=== PATIENT | male | born 1965 | race Caucasian/White ===

== ENCOUNTER 2019-12-07 01:38 | Inpatient (IN) | payer MEDICAID ==
[~2019-12-07] VITALS: Ht 170.2 cm; Wt 90.7 kg
[2019-12-07] MEDS ORDERED: ONDANSETRON HCL 4MG/2ML INJ IV STA (02:36)
[2019-12-07] MEDS ORDERED: SODIUM CHLORIDE 0.9% 1,000 ML IV ONE (02:36)
[2019-12-07] MEDS ORDERED: MORPHINE SULFATE 4 MG/ML CPJ (NOT FOR IM USE) IV STA (02:36)
[2019-12-07 02:47] LABS: BASOPHILS % 0.4 % (0.0-2.0); EOSINOPHILS % 2.2 % (0.0-5.0); HEMATOCRIT. 42.9 % (42.0-52.0); HEMOGLOBIN. 14.2 g/dL (14.0-18.0); LYMPHOCYTES % 9.8 % (20.0-50.0); MEAN CORPUSCULAR HEMOGLOBIN 26.2 pg (28.0-32.0); MEAN CORPUSCULAR VOLUME 78.9 fL (80.0-94.0); MEAN PLATELET VOLUME 9.6 fl (7.4-10.4); MONOCYTES % 6.1 % (2.0-8.0); NEUTROPHILS % 81.5 % (40.0-76.0); PLATELET 158 x1000/uL (130-400); RED BLOOD CELL COUNT 5.44 mill/uL (4.7-6.1); RED CELL DISTRIBUTION WIDTH 15.4 % (11.6-14.6)
[2019-12-07 02:48] LABS: CLARITY URINE CLEAR (CLEAR); COLOR URINE DARK YELLOW (YELLOW); KETONES URINE 1+ (NEGATIVE); LEUKOCYTE ESTERASE URINE NEGATIVE (NEGATIVE); NITRITE URINE NEGATIVE (NEGATIVE); OCCULT BLOOD URINE NEGATIVE (NEGATIVE); PH URINE 5.5 (4.5-8.0); PROTEIN URINE TRACE (NEGATIVE)
[2019-12-07 02:49] LABS: CHLORIDE 107 mEq/L (98-107)
[2019-12-07 02:53] LABS: ETHANOL BLOOD < 10 mg/dL
[2019-12-07 03:09] LABS: *BARBITURATES SCREEN URINE NEGATIVE (NEGATIVE); *BENZODIAZEPINES SCREEN URINE NEGATIVE (NEGATIVE); *COCAINE SCREEN URINE NEGATIVE (NEGATIVE); METHADONE URINE SCREEN NEGATIVE (NEGATIVE)
[2019-12-07 03:10] LABS: *AMPHETAMINES SCREEN URINE NEGATIVE (NEGATIVE); CANNABINOID URINE SCREEN NEGATIVE (NEGATIVE); OPIATES URINE SCREEN NEGATIVE (NEGATIVE); PHENCYCLIDINE URINE SCREEN NEGATIVE (NEGATIVE)
[2019-12-07] MEDS ORDERED: SODIUM CHLORIDE 0.9% 1,000 ML IV SCH (09:23)
[2019-12-07] MEDS ORDERED: MAGNESIUM/ALUMINUM HYDROXIDE/SIMETHICONE 30ML UDC PO PRN (09:30)
[2019-12-07] MEDS ORDERED: NA PHOS,M-B/NA PHOS,DI-BA ENEMA 118ML PR PRN (09:30)
[2019-12-07] MEDS ORDERED: CLONIDINE 0.1MG TABLET PO PRN (09:30)
[2019-12-07] MEDS ORDERED: DOCUSATE SODIUM 100MG CAPSULE PO PRN (09:30)
[2019-12-07] MEDS ORDERED: GUAIFENESIN 200MG/10ML SUGAR FREE UDC PO PRN (09:30)
[2019-12-07] MEDS ORDERED: ONDANSETRON HCL 4MG/2ML INJ IV PRN (09:30)
[2019-12-07] MEDS ORDERED: NITROGLYCERIN 0.4MG TABLET SL SL PRN (09:30)
[2019-12-07] MEDS ORDERED: LORAZEPAM 0.5MG TABLET PO PRN (09:30)
[2019-12-07] MEDS ORDERED: IPRATROPIUM/ALBUTEROL 0.5-3(2.5)MG/3ML NEB NEB PRN (09:30)
[2019-12-07] MEDS: KETOROLAC 15MG/ML VIAL IV PRN ×2 (10:26→17:35)
[2019-12-07] MEDS: ENOXAPARIN 40MG/0.4ML SYR SUBCUT SCH (10:27)
[2019-12-07] MEDS: ACETAMINOPHEN 325MG TABLET PO PRN ×2 (10:28→21:46)
[2019-12-07] MEDS: METOCLOPRAMIDE 10MG/10 ML UDC PO SCH ×2 (12:50→17:34)
[2019-12-07] MEDS ORDERED: DEXTROSE 50% WATER 50ML SYRINGE IV PRN (15:00)
[2019-12-07 15:25] VITALS: BP 106/73
[2019-12-07 16:00] VITALS: BP 110/73
[2019-12-07] MEDS ORDERED: INSU100V3 SUBCUT ×2 (16:18)
[2019-12-07] MEDS ORDERED: NPH,100V SQ (16:18)
[2019-12-07] MEDS ORDERED: METF-416 PO (16:18)
[2019-12-07] MEDS ORDERED: BENA5TAB6 PO (16:18)
[2019-12-07] MEDS ORDERED: TAMS-11 PO (16:18)
[2019-12-07] MEDS ORDERED: ATOR20TA65 PO (16:18)
[2019-12-07] MEDS ORDERED: ASPI-1497 PO (16:18)
[2019-12-07] MEDS: BLOOD SUGAR DIAGNOSTIC STRIP TEST SCH ×2 (17:42→21:45)
[2019-12-07] MEDS: INSULIN LISPRO 100 UNITS/ML SUBCUT SCH ×2 (18:22→21:53)
[2019-12-07 20:00] VITALS: BP 109/67
[2019-12-07] MEDS ORDERED: ZOLPIDEM TARTRATE 5MG TABLET PO PRN (21:00)
[2019-12-08 04:00] VITALS: BP 111/74
[2019-12-08] MEDS: METOCLOPRAMIDE 10MG/10 ML UDC PO SCH (06:12)
[2019-12-08 07:11] LABS: BASOPHILS % 0.2 % (0.0-2.0); EOSINOPHILS % 5.3 % (0.0-5.0); HEMOGLOBIN. 13.1 g/dL (14.0-18.0); LYMPHOCYTES % 47.4 % (20.0-50.0); MEAN CORPUSCULAR HEMOGLOBIN 26.3 pg (28.0-32.0); MEAN CORPUSCULAR VOLUME 78.4 fL (80.0-94.0); MEAN PLATELET VOLUME 9.3 fl (7.4-10.4); MONOCYTES % 10.7 % (2.0-8.0); NEUTROPHILS % 36.4 % (40.0-76.0); PLATELET 151 x1000/uL (130-400); RED BLOOD CELL COUNT 4.97 mill/uL (4.7-6.1); RED CELL DISTRIBUTION WIDTH 15.4 % (11.6-14.6)
[2019-12-08 07:17] LABS: CHLORIDE 111 mEq/L (98-107)
[2019-12-08] MEDS: BLOOD SUGAR DIAGNOSTIC STRIP TEST SCH (07:20)
[2019-12-08 07:32] LABS: PHOSPHORUS 2.6 mg/dL (2.5-4.9)
[2019-12-08 08:00] VITALS: BP 93/59
[2019-12-08] MEDS: ENOXAPARIN 40MG/0.4ML SYR SUBCUT SCH (08:33)
[2019-12-08] MEDS: INSULIN LISPRO 100 UNITS/ML SUBCUT SCH (08:56)
[2019-12-08] MEDS ORDERED: PANTOPRAZOLE SODIUM 40 MG/VIAL IV SCH (09:00)
[2019-12-08 10:55] VITALS: BP 93/59
== END 2019-12-08 11:43 | disposition home or self-care (01) | DRG 247 ==
LOC: ER 01:38 → 6EST 05:56 → ENRESERV 13:06
PROVIDERS: ADMIT Internal Medicine; ATTEND Internal Medicine
DX: K56.7 Ileus, unspecified (principal); E46 Unspecified protein-calorie malnutrition; K52.9 Noninfective gastroenteritis and colitis, unspecified; E11.9 Type 2 diabetes mellitus without complications; E83.51 Hypocalcemia
CPT/HCPCS: 36415; 71045; 74176; 80053; 80305; 80320; 81003; 82962; 83036; 83605; 83735; 84100; 85025; 96374; 99285; C9113; J1650; J1815; J1885; J2270; J2405; J7030; J8597; G0480